=== PATIENT | female | born 1995 | race Caucasian/White ===

== ENCOUNTER 2021-04-02 09:20 | Emergency (ER) | payer OTHER, SELFPAY ==
[2021-04-02 09:24] VITALS: BP 158/93; PULSE 81; RESP 20; TEMP 36.9; O2SAT 99
--- NOTE | 2021-04-02 09:43 | PC.NURSE ---
Attempted to call pt to a room, pt is outside smoking.
[2021-04-02] MEDS: SODIUM CHLORIDE 0.9% IV 1,000 ML 999 ML IV CONT (10:51)
[2021-04-02] MEDS: LIDOCAINE HCL 2% VISC SOLN 15 ML UDC 20 ML PO (10:51)
[2021-04-02] MEDS: PANTOPRAZOLE SODIUM IV 40 MG VIAL IV PUSH (10:51)
[2021-04-02] MEDS: MAG HYDROX/AL HYDROX/SIMETH 30 ML UDC PO (10:51)
[2021-04-02 10:58] LABS: Basophils Percent Auto 0.3 % (0.2-1.2); Eosinophils Absolute Auto 0.1 K/mm3 (0-0.3); Eosinophils Percent Auto 0.9 % (0-4.4); Hemoglobin 13.7 g/dL (12.0-15.0); Immature Granulocyte Absolute 0.03 K/mm3 (0.00-0.031); Immature Granulocyte Percent A 0.3 % (0-0.5); Lymphocytes Absolute Auto 2.22 K/mm3 (0.9-3.2); Lymphocytes Percent Auto 21.8 % (18.3-44.2); Mean Corpuscular HGB Conc 32.6 g/dl (32-36); Mean Corpuscular Volume 82.8 fl (80-100); Mean Platelet Volume 9.8 fl (7.4-10.4); Monocytes Absolute Auto 0.5 K/mm3 (0.1-0.6); Monocytes Percent Auto 5.3 % (2.6-8.5); Neutrophils Absolute Auto 7.3 K/mm3 (1.3-6.7); Neutrophils Percent Auto 71.4 % (45.5-73.1); Platelet Count Result 309 k/mm3 (150-375); Red Blood Count 5.07 M/mm3 (4.2-5.4); Red Cell Distribution Width 13.4 % (11.5-14.5); White Blood Count 10.2 K/mm3 (4.5-10.0)
[2021-04-02 11:02] LABS: Add Urine Microscopic? YES; Appearance Urine Cloudy (Clear); Bacteria Urine Trace /hpf; Bilirubin Urine Negative (Negative); Blood Urine Negative (Negative); Color Urine Yellow (Yellow); Glucose Urine UA Negative (Negative); Ketones Urine Negative (Negative); Leukocyte Esterase Ur Trace LEU/UL (Negative); Mucus Urine Rare /lpf; Nitrate Urine Negative (Negative); Protein Urine Negative (Negative); RBC Urine 0-2 /hpf (0-2); Specific Grav Ur 1.023 (1.001-1.035); Squamous Epithelial Cell Urine Many /hpf (Few); Urobilinogen Urine Negative mg/dL (<2.0); WBC Urine 0-3 /hpf
--- NOTE | 2021-04-02 11:06 | ED.GENADULT ---
HPI - General Adult General Chief complaint: Back Pain/Injury Stated complaint: BACK PAIN Time Seen by Provider: 04/02/21 10:22 Source: patient, family and RN notes reviewed Mode of arrival: ambulatory Limitations: no limitations History of Present Illness HPI narrative: Patient is a 25-year-old female who presents to emergency department for evaluation of epigastric pain that radiates to the posterior back patient has been having these symptoms off and on. Patient has not taken anything other than [id number] antacid with no improvement woke up this morning with intensifying pain. Patient on arrival appears uncomfortable but not in distress. Patient denies any fever chills nausea vomiting. Patient denies sick contacts or URI symptoms. Patient has not been seen for this complaint Related Data Allergies Allergy/AdvReac Type Severity Reaction Status Date / Time No Known Allergies Allergy Unknown Verified 04/02/21 09:29 Review of Systems Review of Systems: All systems reviewed & are unremarkable except as noted in HPI and below PMFSH Past Medical History Medical History (Updated 04/02/21 @ 12:11 by Price Argueta PA-C) Anxiety Obesity Family History Family History (Updated 06/08/16 @ 23:21 by DOCTOR UNKNOWN) Father Asthma Patient's father is in good health Grandparent Asthma Mother Patient's mother is in good health Other Family history of arthritis Social History Social History Second hand tobacco smoke exposure: Yes Alcohol intake: current Gender identity (if verbalized by the patient): Female Exam Narrative: Exam Narrative: GENERAL: Well-appearing, obese, uncomfortable and in no acute distress. HEAD: Normocephalic, atraumatic. EYES: PERRLA and EOMI. ENT: Nares clear, no rhinorrhea or epistaxis. Mucous membranes moist. CHEST: Clear to auscultation. No respiratory distress. No wheezes rales or rhonchi HEART: Regular rate and rhythm. No murmur heard. Normal peripheral pulses. ABDOMEN: Soft, epigastric tenderness to palpation, nondistended EXTREMITIES: Normal range of motion. No edema. SKIN: Warm, dry, no rash. NEURO: No focal deficits. Alert and oriented x3. Cranial nerves II through XII grossly intact PSYCH: Normal mood and affect. Course Course Emergency Course: Patient evaluated in the emergency department ABCs and vital signs intact and stable afebrile nontoxic-appearing Vital Signs Vital signs: Vital Signs Temperature 98.5 F 04/02/21 09:24 Pulse Rate 81 04/02/21 09:24 Respiratory Rate 20 04/02/21 09:24 Blood Pressure 158/93 H 04/02/21 09:24 Pulse Oximetry 99 04/02/21 09:24 Temperature 98.5 F 04/02/21 09:24 Pulse Rate 81 04/02/21 09:24 Respiratory Rate 20 04/02/21 09:24 Blood Pressure 158/93 H 04/02/21 09:24 Pulse Oximetry 99 04/02/21 09:24 Medical Decision Making MDM Narrative Medical decision making narrative: Patient in the room at this time feeling much better with interventions specifically the GI cocktail no high risk changes in the blood work or imaging will be referred to GI and primary care for further evaluation patient agrees with this plan Vital Signs Vital Signs: Vital Signs Temperature 98.5 F 04/02/21 09:24 Pulse Rate 81 04/02/21 09:24 Respiratory Rate 20 04/02/21 09:24 Blood Pressure 158/93 H 04/02/21 09:24 Pulse Oximetry 99 04/02/21 09:24 Temperature 98.5 F 04/02/21 09:24 Pulse Rate 81 04/02/21 09:24 Respiratory Rate 20 04/02/21 09:24 Blood Pressure 158/93 H 04/02/21 09:24 Pulse Oximetry 99 04/02/21 09:24 Lab Data Result diagrams: 04/02/21 10:48 04/02/21 10:48 Labs: Lab Results 04/02/21 04/02/21 04/02/21 Range/Units 10:48 10:48 10:48 WBC 10.2 H (4.5-10.0) K/mm3 RBC 5.07 (4.2-5.4) M/mm3 Hgb 13.7 (12.0-15.0) g/dL Hct 42.0 (37.0-47.0) % MCV 82.8 (80-100)
[2021-04-02 11:10] LABS: Alanine Aminotransferase 21 U/L (4-35); Albumin Level 4.1 g/dL (3.5-5.1); Alkaline Phosphatase 85 U/L (38-126); Anion Gap 6 mmol/L (8-16); Aspartate Amino Transferase 21 U/L (14-36); Bilirubin,Total 0.1 mg/dL (0.2-1.3); Blood Urea Nitrogen 12 mg/dL (7-17); Calcium 9.3 mg/dL (8.4-10.2); Carbon Dioxide 26 mmol/L (22-30); Chloride 105 mmol/L (98-107); Estimated CRCL calculation 177 ml/min; Estimated Glomerular Filt Rate > 60; Glucose 131 mg/dL (65-105); Lipase 32 U/L (23-300); Potassium 4.3 mmol/L (3.4-5.0); Sodium 137 mmol/L (137-145)
[2021-04-02 12:47] VITALS: BP 148/84; PULSE 86; RESP 17; O2SAT 99
== END 2021-04-02 12:48 | disposition home or self-care (01) ==
PROVIDERS: Emergency Medicine Emergency Medical Services; Emergency Provider Emergency Medicine; PCP Physician Assistant
DX: R10.13 Epigastric pain (principal); E66.9 Obesity, unspecified; Z68.43 Body mass index [BMI] 50.0-59.9, adult; Z77.22 Contact with and (suspected) exposure to environmental tobacco smoke (acute) (chronic)
CPT/HCPCS: 36415; 80053; 81001; 81025; 83690; 85025; 96361; 96374; 96375; 99284; A9270; C9113; J0131; J7030

== ENCOUNTER 2021-04-11 07:57 | Inpatient (IN) | payer OTHER, SELFPAY ==
--- NOTE | ~2021-04-11 | XR_ITS ---
EXAMINATION: XR chest 2V DATE: 04/11/2021 08:59 INDICATION: Epigastric abdominal pain. Gastroesophageal reflux disease. TECHNIQUE: Frontal and lateral views of the chest were obtained. COMPARISON: None. FINDINGS: The chest demonstrates clear lungs without pneumonia, pleural effusion, or pneumothorax. Th e heart size is normal. IMPRESSION: 1. No acute cardiopulmonary disease. Reviewed, dictated and finalized at location A.
--- NOTE | ~2021-04-11 | US_ITS ---
EXAMINATION: US abdomen limited DATE: 04/11/2021 08:53 INDICATION: Right upper quadrant abdominal pain. TECHNIQUE: Multiple grayscale and Doppler ultrasound images of the abdomen were obtained. COMPARISON: None FINDINGS: The visualized portions of the head and body of the pancreas are normal. The liver is loyda l without focal lesion. There is normal flow in main portal vein. The gallbladder is distended and co ntains gallstones. Gallbladder wall thickening is noted. There was a positive sonographic Garcia sign . The common duct is normal and measures 4 mm. IMPRESSION: 1. Acute cholecystitis. Reviewed, dictated and finalized at location A. IMPRESSION: 1. Acute cholecystitis.
[2021-04-11 08:10] VITALS: BP 133/67; PULSE 70; RESP 16; TEMP 36.3; O2SAT 98
--- NOTE | 2021-04-11 08:16 | ED.ABDPAIN ---
HPI - Abdominal Pain General Chief Complaint: Abdominal Pain Stated Complaint: epigastric pain, hx of gerd Time Seen by Provider: 04/11/21 08:16 Source: patient Mode of arrival: ambulatory Limitations: no limitations History of Present Illness HPI narrative: Patient is a 25-year-old female who presents for evaluation of upper abdominal pain with radiation into the chest. Pain is described as burning in nature, sharp and cramping as well in the right upper quadrant. Radiation to the back. Pain has been constant for several hours this morning. It has been intermittent and worsening over the past 72 hours. At times it is worse after meals. Associated nausea without vomiting. No current shortness of breath. No cough. Patient has fever or chills. History of this 7 years ago in which resolved on its own. She does not take any antacid therapy. 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 She reports watery diarrhea without constipation. No lower abdominal pain or urinary symptoms. Pt with visit 04/02 for epigastric pain, discharged home in stable condition with reassuring labs. Related Data Allergies Allergy/AdvReac Type Severity Reaction Status Date / Time No Known Allergies Allergy Unknown Verified 04/02/21 09:29 Review of Systems Review of Systems: Narrative: CONSTITUTIONAL: Denies fever, chills, or sweats. ENT: Denies rhinorrhea, congestion, sore throat, or otalgia. CARDIOVASCULAR: Denies chest pain, palpitations, or edema. RESPIRATORY: Denies cough or dyspnea. GASTROINTESTINAL: Reports upper abdominal pain, nausea, diarrhea GENITOURINARY: Denies dysuria or hematuria. SKIN: Denies rash or itching. MUSCULOSKELETAL: Reports middle back discomfort, denies other joint pain or myalgias NEUROLOGIC: Denies headache, numbness, or weakness. [facility] Past Medical History Medical History Anxiety Obesity Family History Family History Father Asthma Patient's father is in good health Grandparent Asthma Mother Patient's mother is in good health Other Family history of arthritis Social History Social History Second hand tobacco smoke exposure: Yes Alcohol intake: current Gender identity (if verbalized by the patient): Female Exam Narrative: Exam Narrative: GENERAL: Awake, alert, conversant HEAD: Normocephalic, atraumatic. EYES: PERRLA and EOMI. ENT: Nares clear, no rhinorrhea or epistaxis. Mucous membranes moist. NECK: Supple. CHEST: No respiratory distress, breathing even and non labored HEART: Regular rate, sinus rhythm ABDOMEN:Non distended, obese, right upper quadrant tenderness, positive guarding, positive Garcia sign, positive epigastric tenderness, no periumbilical tenderness, no right lower quadrant tenderness EXTREMITIES: Normal range of motion. No edema. SKIN: Warm, dry, no rash. NEURO:No focal deficits. Alert and oriented x3 Course Vital Signs Vital signs: Vital Signs Temperature 36.3 C L 04/11/21 08:10 Pulse Rate 70 04/11/21 08:10 Respiratory Rate 16 04/11/21 08:10 Blood Pressure 133/67 04/11/21 08:10 Pulse Oximetry 98 04/11/21 08:10 Temperature 36.3 C L 04/11/21 08:10 Pulse Rate 70 04/11/21 08:10 Respiratory Rate 16 04/11/21 08:10 Blood Pressure 133/67 04/11/21 08:10 Pulse Oximetry 98 04/11/21 08:10 MDM - Abdominal Pain MDM Narrative Medical decision making narrative: Patient presenting for right upper quadrant abdominal pain. At the time of assessment, ABCs are intact and vital signs are stable. Patient is tearful, she is anxious, she has right upper quadrant pain with guarding on exam that is concerning for acute cholecystitis given the patient's symptoms. Patient was made n.p.o., given IV fluids, antiemetic and pain medication. Laboratory results show mild leukocytosis. No significa
[2021-04-11 08:22] LABS: Basophils Percent Auto 0.3 % (0.2-1.2); Eosinophils Absolute Auto 0.1 K/mm3 (0-0.3); Eosinophils Percent Auto 0.5 % (0-4.4); Hematocrit 43.3 % (37.0-47.0); Immature Granulocyte Absolute 0.03 K/mm3 (0.00-0.031); Immature Granulocyte Percent A 0.3 % (0-0.5); Lymphocytes Absolute Auto 3.25 K/mm3 (0.9-3.2); Lymphocytes Percent Auto 29.6 % (18.3-44.2); Mean Corpuscular HGB Conc 32.3 g/dl (32-36); Mean Corpuscular Hemoglobin 26.6 pg (26-34); Mean Corpuscular Volume 82.2 fl (80-100); Monocytes Absolute Auto 0.7 K/mm3 (0.1-0.6); Monocytes Percent Auto 6.6 % (2.6-8.5); Neutrophils Absolute Auto 6.9 K/mm3 (1.3-6.7); Neutrophils Percent Auto 62.7 % (45.5-73.1); Platelet Count Result 368 k/mm3 (150-375); Red Blood Count 5.27 M/mm3 (4.2-5.4); Red Cell Distribution Width 13.2 % (11.5-14.5)
[2021-04-11 08:29] LABS: Add Urine Microscopic? YES; Appearance Urine Cloudy (Clear); Bacteria Urine Trace /hpf; Bilirubin Urine Negative (Negative); Blood Urine Negative (Negative); Color Urine Yellow (Yellow); Glucose Urine UA Negative (Negative); Ketones Urine Negative (Negative); Leukocyte Esterase Ur Trace LEU/UL (Negative); Mucus Urine Rare /lpf; Nitrate Urine Negative (Negative); Protein Urine 1+ mg/dL (Negative); Specific Grav Ur 1.026 (1.001-1.035); Squamous Epithelial Cell Urine Many /hpf (Few); Urobilinogen Urine Negative mg/dL (<2.0)
[2021-04-11 08:31] LABS: Alanine Aminotransferase 19 U/L (4-35); Albumin Level 4.4 g/dL (3.5-5.1); Alkaline Phosphatase 84 U/L (38-126); Anion Gap 10 mmol/L (8-16); Aspartate Amino Transferase 21 U/L (14-36); Bilirubin,Total 0.4 mg/dL (0.2-1.3); Blood Urea Nitrogen 11 mg/dL (7-17); Calcium 9.6 mg/dL (8.4-10.2); Carbon Dioxide 24 mmol/L (22-30); Chloride 104 mmol/L (98-107); Estimated CRCL calculation 158 ml/min; Estimated Glomerular Filt Rate > 60; Glucose 118 mg/dL (65-105); Lipase 47 U/L (23-300); Potassium 4.2 mmol/L (3.4-5.0); Sodium 138 mmol/L (137-145)
--- NOTE | 2021-04-11 08:45 | ECG_ITS ---
Measurements Intervals [place] Rate: 49 P: 61 TN: 164 QRS: 92 QRSD: 95 T: 69 QT: 425 QTc: 385 Interpretive Statements SINUS BRADYCARDIA RIGHT AXIS DEVIATION BASELINE WANDER- V6 ABNORMAL ECG Electronically Signed On 04-11-2021 13:20:59 CDT by Tony Camacho D.O.
[2021-04-11] MEDS: ONDANSETRON INJ 4 MG/2 ML VIAL IV PUSH ×2 (09:08→13:11)
[2021-04-11] MEDS: MORPHINE SULFATE (*CRX) 4 MG/ML INJ IV PUSH ×3 (09:09→18:17)
[2021-04-11] MEDS: FAMOTIDINE 20 MG/2 ML VIAL IV PUSH (09:09)
[2021-04-11 09:10] LABS: Troponin I < 0.012 ng/mL (0.000-0.034)
[2021-04-11 10:05] VITALS: BP 138/90; PULSE 60; RESP 16; O2SAT 97
--- NOTE | 2021-04-11 10:15 | PC.NURSE ---
This patient, Wilda Martel, was admitted to [facility] Surg Room 300-01. Patient/family oriented to hospital policies and general routines including ID bracelet, bed and alarms, visiting hours, pain management, procedures, bathroom and other care routines, personal items, smoking policy, room service/diet, and visiting hours. Report received from [facility] Information on how to activate the Rapid Response Team has been discussed. Patient/Family are encouraged to report perceived risks to care and to ask questions if they do not understand what they are told or what they should do.
[2021-04-11 10:18] VITALS: BMI 56.1
[2021-04-11 10:23] VITALS: BP 140/74; PULSE 60; RESP 18; TEMP 36.2; O2SAT 99; BMI 56.1
[2021-04-11] MEDS: SODIUM CHLORIDE 0.9% IV 1,000 ML 125 ML IV CONT ×2 (10:32→18:15)
--- NOTE | 2021-04-11 11:39 | PM.IMHP ---
H&P: HPI History of Present Illness Date/Time: 04/11/21 11:39 Chief Complaint: Epigastric abdominal pain Narrative: This is a 25-year-old morbidly obese female who presented to the ER for evaluation of epigastric abdominal pain. She reports this has been a constant ongoing pain for the past 3 weeks. She initially went to the ER on 04/02/21 with the same complaints and was treated for reflux and sent home with Pepcid and Levsin, which did not improve her symptoms. No imaging was done on that ER visit. Reports frequent nausea over the past 3 weeks and she would force herself to vomit at times, but this was only on a few occasions. No fever or chills. She reports her abdominal pain seemed to be aggravated by eating any food. Her pain is described as epigastric abdominal pain that radiates across the entire upper abdomen, to the substernal chest, and to the mid back. This is a sharp stabbing pain. She reports that she attempted to eat 4 chicken nuggets yesterday afternoon and her pain became more severe over the next few hours. Due to the unrelenting pain, she presented back to the ER for further evaluation. Ultrasound of the right upper quadrant showed acute cholecystitis with cholelithiasis. Labs showed a white blood cell count of 11,000, normal troponin, normal lipase, and normal LFTs. Urinalysis showed trace leukocytes and 10-15 WBC, and many squamous epithelial cells. Urine culture pending. Our service was contacted by the ED provider and she was admitted to our service for surgical evaluation of acute calculous cholecystitis. She is now seen on the medical floor. She reports her abdominal pain has improve and is now a 7/10 on a pain scale. Reports nausea. Denies hematuria, dysuria, frequency, urgency, or vaginal discharge. No other complaints at this time. No history of abdominal surgeries. Patient does also report a small, soft lump on the right side of her face. This has been there for 6 years and her PCP told her it was a cyst. It fluctuates in size at times, but has never become red or painful. Denies any previous imaging of this mass or other testing. She is asking if this could potentially be removed during surgery. This is not painful or bothering her at this time. Review of Systems Review of Systems: All systems reviewed & are unremarkable except as noted in HPI and below Constitutional: Constitutional: Reports as per HPI, Denies chills, Denies fatigue and Denies fever(s) Eyes: Eyes: Reports no additional eye complaints and Denies change in vision ENT: Reports system reviewed and no additional complaints, except as documented, Reports Normal hearing present and Denies dizziness Cardiovascular: Cardiovascular: Reports no additional cardiovascular complaints, Reports chest pain (substernal chest pain radiating from epigastric area), Denies irregular heart rhythm and Denies leg edema Respiratory: Respiratory: Reports no additional respiratory complaints, Denies cough and Denies dyspnea Gastrointestinal: Gastrointestinal: Reports as per HPI, Reports no additional gastrointestinal complaints, Reports abdominal pain (epigastric abd pain, radiating across upper abd and to chest), Denies bloating, Denies coffee ground emesis, Reports loose stools (intermittently over past few weeks), Reports nausea and Reports vomiting Genitourinary: Genitourinary: Denies hematuria, Denies nocturia, Denies genital pruritis, Denies genital lesions, Denies dysuria, Denies pelvic pain, Denies flank pain, Denies urinary incontinence, Denies vaginal discharge and Denies vaginal odor Comments: Reports history of HPV. Musculoskeletal: Musculoskeletal: Denies abnormal gait, Denies deformity, Denies joint swelling, Denies numbness and Denies tingling Integumentary/Breasts: Skin/Breast: Denies wounds and Denies jaundice Neurologic: Reports system reviewed and no additional complaints, except as documented, Reports Normal hearing present, Denies abnormal gait, Denies dizziness
[2021-04-11 13:55] VITALS: BP 143/77; PULSE 75; RESP 16; TEMP 36.7; O2SAT 98
[2021-04-11] MEDS: BISACODYL 10 MG SUPPOSITORY RECTAL (18:49)
[2021-04-11] MEDS: MORPHINE SULFATE (*CRX) 2 MG/ML INJ IV PUSH (21:36)
[2021-04-11 22:00] VITALS: BP 143/87; PULSE 64; RESP 20; TEMP 36.4; O2SAT 100
[2021-04-12] VITALS (11 sets, daily range): BP systolic 115–157; BP diastolic 58–99; PULSE 64–80; RESP 12–22; TEMP 36.1–37.3; O2SAT 92–100
[2021-04-12] MEDS: MORPHINE SULFATE (*CRX) 2 MG/ML INJ IV PUSH ×3 (02:31→22:17)
[2021-04-12] MEDS: SODIUM CHLORIDE 0.9% IV 1,000 ML 125 ML IV CONT (02:31)
[2021-04-12 06:06] LABS: Basophils Percent Auto 0.1 % (0.2-1.2); Eosinophils Percent Auto 0.3 % (0-4.4); Hematocrit 38.4 % (37.0-47.0); Hemoglobin 12.6 g/dL (12.0-15.0); Immature Granulocyte Absolute 0.04 K/mm3 (0.00-0.031); Immature Granulocyte Percent A 0.4 % (0-0.5); Lymphocytes Absolute Auto 2.73 K/mm3 (0.9-3.2); Lymphocytes Percent Auto 26.5 % (18.3-44.2); Mean Corpuscular HGB Conc 32.8 g/dl (32-36); Mean Corpuscular Hemoglobin 26.8 pg (26-34); Mean Corpuscular Volume 81.7 fl (80-100); Mean Platelet Volume 10.1 fl (7.4-10.4); Monocytes Absolute Auto 0.8 K/mm3 (0.1-0.6); Monocytes Percent Auto 8.1 % (2.6-8.5); Neutrophils Absolute Auto 6.7 K/mm3 (1.3-6.7); Neutrophils Percent Auto 64.6 % (45.5-73.1); Platelet Count Result 304 k/mm3 (150-375); Red Cell Distribution Width 12.9 % (11.5-14.5); White Blood Count 10.3 K/mm3 (4.5-10.0)
[2021-04-12 06:23] LABS: Alanine Aminotransferase 72 U/L (4-35); Albumin Level 3.9 g/dL (3.5-5.1); Alkaline Phosphatase 107 U/L (38-126); Anion Gap 9 mmol/L (8-16); Aspartate Amino Transferase 56 U/L (14-36); Bilirubin,Total 0.6 mg/dL (0.2-1.3); Blood Urea Nitrogen 6 mg/dL (7-17); Carbon Dioxide 25 mmol/L (22-30); Chloride 104 mmol/L (98-107); Estimated CRCL calculation 182 ml/min; Estimated Glomerular Filt Rate > 60; Glucose 109 mg/dL (65-105); Lipase 62 U/L (23-300); Potassium 3.9 mmol/L (3.4-5.0); Sodium 138 mmol/L (137-145)
[2021-04-12] MEDS: CHLORHEXIDINE GLUCONATE 4% SOL 120 ML BTL 1 APPLIC TOPICAL (06:33)
[2021-04-12] MEDS: ONDANSETRON INJ 4 MG/2 ML VIAL IV PUSH ×3 (06:37→20:29)
[2021-04-12] MEDS: MORPHINE SULFATE (*CRX) 4 MG/ML INJ IV PUSH ×2 (09:40→18:58)
--- NOTE | 2021-04-12 09:40 | WPDHPUPDATE1 ---
History and Physical Update Update Date/Time: 04/12/21 09:40 History and Physical has been reviewed, including an updated exam of the patient. There are NO changes in the patient's condition. Risks, benefits, and alternatives have been discussed and questions answered. Patient agrees to proceed with procedure.
--- NOTE | 2021-04-12 12:00 | PC.NURSE ---
To OR per bed.
[2021-04-12] MEDS: LACTATED RINGERS 1,000 ML 30 ML IV CONT ×2 (12:30→17:49)
[2021-04-12] MEDS: ACETAMINOPHEN 500 MG TABLET 1000 MG PO (12:49)
--- NOTE | 2021-04-12 12:49 | WPDANESEPPF ---
Anes - Initial Pre Proc Eval Procedure: Operation Date: 04/12/21 14:00 Proposed Procedures p Laparoscopic Cholecystectomy, Possible Intraoperative Cholangiograms,Possible Open - Arvind Bean MD Date/Time: 04/12/21 12:49 Surgeon: Arvind Bean MD Pre Op Diagnosis: ACUTE CHOLECYSTITIS Patient Data Age: 25 Gender: F Height: 5 ft 5 in Weight: 153 kg Last Vital Signs Temp 36.6 C 04/12/21 05:40 Pulse 67 04/12/21 05:40 Resp 20 04/12/21 05:40 BP 136/58 L 04/12/21 05:40 Pulse Ox 98 04/12/21 05:40 Allergies Allergy/AdvReac Type Severity Reaction Status Date / Time No Known Allergies Allergy Unknown Verified 04/11/21 10:28 Home Medications Medication Instructions Recorded Confirmed Type famotidine [Pepcid] 20 mg PO BID #14 tablet 04/02/21 04/11/21 Rx hyoscyamine sulfate [Levsin] 0.125 mg PO QID #7 tablet 04/02/21 04/11/21 Rx Laboratory Tests 04/12/21 04/12/21 04/12/21 05:20 05:20 05:20 WBC 10.3 K/mm3 H K/mm3 (4.5-10.0) RBC 4.70 M/mm3 M/mm3 (4.2-5.4) Hgb 12.6 g/dL g/dL (12.0-15.0) Hct 38.4 % % (37.0-47.0) MCV 81.7 fl fl (80-100) MCH 26.8 pg pg (26-34) MCHC 32.8 g/dl g/dl (32-36) RDW 12.9 % % (11.5-14.5) Plt Count 304 k/mm3 k/mm3 (150-375) MPV 10.1 fl fl (7.4-10.4) Immature Gran % (Auto) 0.4 % % (0-0.5) Neut % (Auto) 64.6 % % (45.5-73.1) Lymph % (Auto) 26.5 % % (18.3-44.2) [place] % (Auto) 8.1 % % (2.6-8.5) Eos % (Auto) 0.3 % % (0-4.4) Baso % (Auto) 0.1 % L % (0.2-1.2) Lymph # (Auto) 2.73 K/mm3 K/mm3 (0.9-3.2) [place] # (Auto) 0.8 K/mm3 H K/mm3 (0.1-0.6) Eos # (Auto) 0.0 K/mm3 K/mm3 (0-0.3) Baso # (Auto) 0.0 K/mm3 K/mm3 (0.0-0.1) Abs Immat Gran (auto) 0.04 K/mm3 H K/mm3 (0.00-0.031) Absolute Neuts (auto) 6.7 K/mm3 K/mm3 (1.3-6.7) Absolute Nucleated RBC 0.0 K/mm3 K/mm3 (0.0-0.012) Nucleated RBC % 0.0 % % (0.0-0.2) Sodium 138 mmol/L mmol/L (137-145) Potassium 3.9 mmol/L mmol/L (3.4-5.0) Chloride 104 mmol/L mmol/L (98-107) Carbon Dioxide 25 mmol/L mmol/L (22-30) Anion Gap 9 mmol/L mmol/L (8-16) BUN 6 mg/dL L D mg/dL (7-17) Creatinine 0.60 mg/dL L mg/dL (0.7-1.0) Estim Creat Clear Calc 182 ml/min ml/min Estimated GFR > 60 (59 - ) Glucose 109 mg/dL H mg/dL (65-105) Calcium 9.0 mg/dL mg/dL (8.4-10.2) Total Bilirubin 0.6 mg/dL mg/dL (0.2-1.3) AST 56 U/L H U/L (14-36) ALT 72 U/L H U/L (4-35) Alkaline Phosphatase 107 U/L U/L (38-126) Total Protein 7.0 g/dL g/dL (6.3-8.2) Albumin 3.9 g/dL g/dL (3.5-5.1) Lipase 62 U/L U/L (23-300) Blood Type O Negative Antibody Screen Negative Patient hx anesthesia problems: none Family hx anesthesia problems: none [facility] Past Medical History Medical History (Updated 04/12/21 @ 12:49 by Cole Denis MD) Anxiety Morbid obesity Surgical History Surgical History No significant past surgical history Family History Family History Father Patient's father is in good health Asthma Gallbladder disease Grandparent Asthma Mother Patient's mother is in good health Family history of arthritis Social History Social History Years smoked: 6 Smoking status: Current every day smoker Tobacco type: cigarettes Second hand tobacco smoke exposure: Yes Alcohol intake: never Substance use: current Substance use type: marijuana Other substance usage details: in the ev
[2021-04-12] MEDS: KETOROLAC 15 MG/ML VIAL (*BKC) IV PUSH (12:50)
[2021-04-12] MEDS: ceFAZolin 3 GM/D5W 100 ML 100 ML IVPB (13:48)
--- NOTE | 2021-04-12 15:08 | SUR.OPER ---
Bile Culture received by Juanita in lab @[phone]
[2021-04-12] MEDS: BUPIVACAINE/EPINEPHRINE 0.5% 50 ML VIAL INFILTRATE (15:21)
--- NOTE | 2021-04-12 17:36 | PM.PROC ---
Procedure Note - Detailed Date of procedure: 04/12/21 Pre-op diagnosis: ACUTE CHOLECYSTITIS Acute Cholecystitis with Cholelithiasis Post-op diagnosis: same Procedure performed: Laparoscopic Cholecystectomy Description of procedure: Patient was seen preoperatively in the holding area and risks, benefits and alternatives confirmed. Patient was taken to the operating room and general anesthesia was induced. A time out was then preformed with the surgery team confirming patient and site of surgery. The abdomen was prepped and draped in the usual sterile fashion. Incision was made just below the umbilicus with an [address] 1 0 Vicryl suture at the base the umbilicus and used it to retract the floppy subcutaneous tissue beneath the umbilicus to the 1 side. I placed 2 stay sutures of O- Vicryl on either side of the mid-line fascia beneath the umbilicus and was then with difficulty able to find the peritoneum put a small incision in it dilate it and then able to slide in the Perez cannula through the fascial defect into the peritoneum. First under low flow and then under high flow the abdomen was insufflated with carbon dioxide never exceeding a pressure of 15. Two 5 mm trocars were then introduced under direct vision. The following trocars were introduced under direct vision: a long 12 mm in the epigastrium and two 5 mm trocars along the right costal margin laterally in the subcostal area. There was significant omental adhesions to the underside of the gallbladder. These were taken down with blunt and sharp dissection using some Bovie cautery for hemostasis. We were able to dissect this completely away from the neck of the gallbladder. However this was very difficult and took more than an hour to carefully work through the indurated fat that was around a large stone just above the neck of the gallbladder. Eventually were we able to work down to the neck of the gallbladder and identify the cystic duct. Using the 12 mm port I was then able to surround both cystic duct and cystic artery carefully using the blunt right angle instrument that fits through a port greater than 10 mm in size. This helped me be safe during this difficult dissection. I then carefully used the L-shaped cautery and the [place] dissector to dissect out the triangle of [place]. I then was able to dissect out both the cystic duct and cystic artery and identify a window of safety. The gall bladder was grasped and the cystic duct and artery were dissected free and clipped with an 10 mm endo-clip waiter/waitress. The cystic duct and artery were clipped with use of 2 clips on the patient's side 1 on the gallbladder side utilizing a 10 mm endoclip-waiter/waitress. The cystic duct was then transected. The cystic artery was also transected at this point. The cystic duct diameter seemed to be about 12 mm and my 10 mm clip did quite closed off. Therefore started leaking a little bit of bile after we cut the duct. Therefore I decided to place an endoloop on this. Interloop was passed through the middle subcostal port the end of the cystic duct was grasped with a [place] through the epigastric port and after 2 tries were able to cinch down the endoloop around the stump of the cystic cystic duct thereby closing off any bile leak from the cystic duct. There were also two 10 mm clips on the cystic duct stump. The gall bladder was removed using electrocautery and then removed from the abdomen using an endobag. In order to get the large stone out of the abdomen within the gallbladder I did make the fascial defect slightly larger with Licea scissors. The trocars were removed visualizing hemostasis and the remaining gas evacuated. Because there had been some bile leakage at the cystic duct stump I decided to leave a 15 round MEAGHAN drain. This was placed through the most lateral port site passing it through the port grabbing it with a grasper and positioning it so that the distal end of it sat right in the area o
[2021-04-12] MEDS: fentaNYL CITRATE INJ (*CRX) 100 MCG/2 ML VIAL 25 MCG IV PUSH (18:03)
[2021-04-12] MEDS: LACTATED RINGERS 1,000 ML 100 ML IV CONT (19:09)
[2021-04-13 03:46] VITALS: BP 121/72; PULSE 59; RESP 20; TEMP 36.7; O2SAT 99
[2021-04-13] MEDS: MORPHINE SULFATE (*CRX) 2 MG/ML INJ IV PUSH (04:27)
[2021-04-13 06:07] LABS: Hematocrit 36.8 % (37.0-47.0); Hemoglobin 12.1 g/dL (12.0-15.0); Mean Corpuscular HGB Conc 32.9 g/dl (32-36); Mean Corpuscular Hemoglobin 26.7 pg (26-34); Mean Corpuscular Volume 81.1 fl (80-100); Mean Platelet Volume 10.5 fl (7.4-10.4); Platelet Count Result 308 k/mm3 (150-375); Red Blood Count 4.54 M/mm3 (4.2-5.4); Red Cell Distribution Width 12.8 % (11.5-14.5); White Blood Count 12.1 K/mm3 (4.5-10.0)
[2021-04-13 06:09] LABS: Alanine Aminotransferase 75 U/L (4-35); Albumin Level 3.6 g/dL (3.5-5.1); Alkaline Phosphatase 102 U/L (38-126); Anion Gap 10 mmol/L (8-16); Aspartate Amino Transferase 57 U/L (14-36); Bilirubin,Total 0.3 mg/dL (0.2-1.3); Blood Urea Nitrogen 7 mg/dL (7-17); Calcium 9.1 mg/dL (8.4-10.2); Carbon Dioxide 23 mmol/L (22-30); Chloride 105 mmol/L (98-107); Estimated CRCL calculation 182 ml/min; Estimated Glomerular Filt Rate > 60; Glucose 101 mg/dL (65-105); Lipase 29 U/L (23-300); Magnesium 1.9 mg/dL (1.6-2.3); Sodium 138 mmol/L (137-145)
[2021-04-13] MEDS: polyethylene glycoL 3350 17 GM POWD.PACK PO (07:58)
[2021-04-13] MEDS: HYDROcodone/acetaminophen (*CRX) 7.5-325 MG TABLET 1 TAB PO ×3 (07:58→17:13)
--- NOTE | 2021-04-13 07:58 | WPDANESPN ---
Anes - Prog Note Post-Op Date/Time: 04/13/21 07:58 Cardiovascular status: normal Respiratory status: normal Airway patency: baseline Mental status: baseline Post-Op hydration status: normal Vital Signs: Last Vital Signs Temp 36.7 C 04/13/21 03:46 Pulse 59 L 04/13/21 03:46 Resp 20 04/13/21 03:46 BP 121/72 04/13/21 03:46 Pulse Ox 99 04/13/21 03:46 Pain Score (VAS): 210 I/O: Intake & Output 04/12/21 04/12/21 04/13/21 15:59 23:59 07:59 Intake Total 1100 1450 550 Output Total 0 615 Balance 1100 1450 -65 Laboratory Tests 04/13/21 05:04 04/13/21 05:04 04/12/21 04/13/21 04/13/21 05:20 05:04 05:04 WBC 12.1 H RBC 4.54 Hgb 12.1 Hct 36.8 L MCV 81.1 MCH 26.7 MCHC 32.9 RDW 12.8 Plt Count 308 MPV 10.5 H Sodium 138 Potassium 4.0 Chloride 105 Carbon Dioxide 23 Anion Gap 10 BUN 7 Creatinine 0.60 L Estim Creat Clear Calc 182 Estimated GFR > 60 Glucose 101 Calcium 9.1 Magnesium 1.9 Total Bilirubin 0.3 AST 57 H ALT 75 H Alkaline Phosphatase 102 Total Protein 7.0 Albumin 3.6 Lipase 29 Blood Type O Negative Antibody Screen Negative Microbiology 04/11/21 08:13 Urine Clean Catch Urine Culture - Final Post-procedural complaints: none Patient Feedback: Patient satisfied with anesthetic care.
[2021-04-13] MEDS: ENOXAPARIN 40 MG/0.4 ML SYRINGE SUB-Q (07:59)
[2021-04-13 08:30] VITALS: BP 116/67; PULSE 67; RESP 16; TEMP 36.3; O2SAT 98
[2021-04-13 11:52] VITALS: BP 121/75; PULSE 69; RESP 18; TEMP 36.3; O2SAT 98
[2021-04-13 15:33] VITALS: BP 130/70; PULSE 67; RESP 18; TEMP 36.3; O2SAT 94
--- NOTE | 2021-04-13 15:58 | PM.DS ---
DS: Admitting Diagnosis Admitting Diagnosis Admitting Diagnosis: Acute cholecystitis Morbid Obesity Mild tobacco abuse Marijuana smoker Facial mass DS: Discharge Diagnosis Discharge Diagnosis (1) Acute cholecystitis: Code(s): K81.0 - Acute cholecystitis Status: Acute Assessment and Plan: 04/12/21 Laparoscopic cholecystectomy (2) Morbid obesity with BMI of 50.0-59.9, adult: Code(s): E66.01 - Morbid (severe) obesity due to excess calories; Z68.43 - Body mass index [BMI] 50.0-59.9, adult Status: Acute Assessment and Plan: Follow-up with PCP regarding further discussion on weight loss. (3) Tobacco use disorder, mild, abuse: Code(s): F17.200 - Nicotine dependence, unspecified, uncomplicated Status: Acute Assessment and Plan: Strongly encouraged cessation. (4) Marijuana smoker: Code(s): F12.90 - Cannabis use, unspecified, uncomplicated Status: Acute Assessment and Plan: Strongly encouraged cessation. (5) Swelling, mass, or lump on face: Code(s): R22.0 - Localized swelling, mass and lump, head Status: Acute Assessment and Plan: Plan was to initially do an excision of the right facial mass during her surgery, but due to the difficulty of surgery and inflammation of the gallbladder, Dr. Bean decided to defer this to a later date. I discussed with the patient today that she can plan this as an outpatient procedure at a later date once healed from this surgery. DS: Summary Hospital Course Reason for hospitalization: This is a 25-year-old morbidly obese female who presented to the ER for evaluation of epigastric abdominal pain that was ongoing for 3 weeks. She had visited the ER on two occasions, the second being this hospitalization. Ultrasound of the right upper quadrant showed acute cholecystitis with cholelithiasis. Labs showed a white blood cell count of 11,000, normal troponin, normal lipase, and normal LFTs. Our service was contacted by the ED provider and she was admitted to our service for surgical evaluation of acute calculous cholecystitis. Hospital Course: She was treated with broad-spectrum IV antibiotics and evaluated for surgery. It appeared that clinically her presentation correlated with acute cholecystitis. Decision was made to take her to the OR. She underwent a laparoscopic cholecystectomy on 04/12/[address] Bean. This was a long procedure that was difficult due to a significant amount of inflammation and she had a large cystic duct that was difficult to clip across. Due to this, a MEAGHAN drain was left in post-operatively. This has been monitored and has only put out minimal serosanguineous drainage. No bilious appearing drainage noted. She was kept overnight for observation. Labs this morning were unremarkable with expected mild leukocytosis, most likely post-operative. She has been advanced to a low fat diet and is tolerating this well. No nausea or vomiting. She is afebrile. IV antibiotics were stopped post-operatively. The patient is tolerating activity and voiding without issues. Pain is well-controlled. Pathology pending. Patient stable for discharge today. Time spent discussing smoking cessation with patient: 3 to 10 minutes Status at Discharge Functional status at discharge: independent ambulation Overall status at discharge: patient is progressing back to baseline Time Spent with Patient Time attestation: Total time spent providing and/or coordinating discharge services: Time spent: Greater than 30 minutes Exam Const: General: comfortable, no acute distress, alert and awake Orientation/consciousness: patient oriented x3 Resp: Effort & Inspection: normal respiratory effort Auscultation: clear to auscultation bilaterally Cardio: Rate: regular rate Rhythm: regular rhythm GI: Inspection: non-distended, incision (Abdominal incisions clean and dry, glue intact.) and obesity GI Palp: Yes Soft to palpation and Yes Tender
== END 2021-04-13 19:15 | disposition home or self-care (01) | DRG 263 ==
LOC: ANHED 09:06 → ANH3MEDSUR 10:03
PROVIDERS: Admitting Provider Surgery; Emergency Provider Emergency Medicine; PCP Physician Assistant; Visit Provider Surgery
PROC: 0FT44ZZ Resection of Gallbladder, Percutaneous Endoscopic Approach (ICD-10-PCS; CPT 47562; principal; 2021-04-12 14:00)
DX: K80.00 Calculus of gallbladder with acute cholecystitis without obstruction (principal); E66.01 Morbid (severe) obesity due to excess calories; Z68.43 Body mass index [BMI] 50.0-59.9, adult; F17.210 Nicotine dependence, cigarettes, uncomplicated; R22.0 Localized swelling, mass and lump, head; F12.90 Cannabis use, unspecified, uncomplicated; Z79.899 Other long term (current) drug therapy
CPT/HCPCS: 36415; 71046; 76705; 80053; 81001; 81025; 83690; 83735; 84484; 85025; 85027; 86850; 86900; 86901; 87070; 87075; 87086; 87205; 88304; 93005; 96361; 96365; 96374; 96375; 96376; 99285; A9270; C1713; G0378; G0379; J0330; J0690; J1650; J1885; J2250; J2270; J2405; J2543; J2704; J3010; J7030; J7120; Q9966

== ENCOUNTER 2023-01-30 15:22 | Emergency (ER) | payer OTHER, SELFPAY ==
[2023-01-30 15:30] VITALS: BP 129/87; PULSE 77; RESP 18; TEMP 36.7; O2SAT 99
--- NOTE | 2023-01-30 15:32 | ED.URI ---
HPI - URI/Sore Throat General Chief Complaint: Upper Respiratory Infection Stated Complaint: sore throat Time Seen by Provider: 01/30/23 15:32 Source: patient Mode of arrival: ambulatory Limitations: no limitations History of Present Illness HPI Narrative: Ms. Martel is a 27-year-old female patient presenting to clinic today with complaints of a cough and mild sore throat. Her daughter tested positive for strep in the clinic today. She denies any known fever or chills. MD elicited complaint: sore throat and nasal congestion Related Data Home Medications Medication Instructions Recorded Confirmed No Home Medications 05/22/21 01/30/23 Allergies Allergy/AdvReac Type Severity Reaction Status Date / Time No Known Allergies Allergy Unknown Verified 05/22/21 11:11 Review of Systems Review of Systems: Pertinent positives per HPI. Patient denies any fever, chills, rash, headache, visual changes, dizziness, cough, shortness of breath, chest pain, palpitations, nausea, vomiting, diarrhea, constipation, abdominal pain, or any urinary issues. [facility] Past Medical History Medical History Anxiety Morbid obesity Surgical History Surgical History History of excision of mass Excision of a right mandibular skin lesion 04/27/21 Hx laparoscopic cholecystectomy Family History Family History Father Patient's father is in good health Asthma Gallbladder disease Grandparent Asthma Mother Patient's mother is in good health Family history of arthritis Social History Social History Years smoked: 6 Smoking status: Current every day smoker Tobacco type: cigarettes Second hand tobacco smoke exposure: Yes Alcohol intake: never Substance use: current Substance use type: marijuana Other substance usage details: in the evening Living arrangements: with friend(s) Additional living arrangements comments: with boyfriend Occupation/Education: occupation Additional occupation/education comments: trailer mechanic Gender identity (if verbalized by the patient): Female Spiritual care concerns: No Comments At the time of my signature, I reviewed and agree with the nursing past medical, surgical, social, and family history. There is no relevant family history pertinent to the patient complaint. Exam Narrative: General: Well-developed, well nourished, in no apparent distress Head: Normocephalic, atraumatic Eyes: Pupils equally round and reactive to light bilaterally, EOM intact, sclera and conjunctive clear, no discharge, lids normal Ears: TMs intact and clear, ear canals clear, no drainage, grossly hearing normal. Nose: Nares patent, clear nasal discharge, no inflammation, no sinus tenderness. Mouth: Oral pharynx without lesions or masses, good dentition, MMM. Oropharynx mildly red Neck: Supple, trachea midline, no enlargement of anterior or posterior cervical nodes, no thyroid masses or goiter palpable. Cardio: Regular rate and rhythm, s1 and s2 normal, no murmur appreciated. Resp: Clear to auscultation bilaterally, no rhonchi, rales, wheezing or rubs Course Course Emergency Course: Portions of this record may have been created with voice recognition software. Level of Care: Express Care Visit Vital Signs Vital signs: Vital signs reviewed MDM - URI/Sore Throat MDM Narrative Medical decision making narrative: At the time of visit patient is resting comfortably on the exam table. Strep screen was obtained and was negative in the clinic today. I suspect patient has acute cough with strep exposure. Supportive measures were discussed with the patient she voiced understanding discharge instructions and agrees to treatment plan. Differential Diagnosis Dif
== END 2023-01-30 15:45 | disposition home or self-care (01) ==
PROVIDERS: Emergency Provider Nurse Practitioner Family
DX: R05.9 Cough, unspecified (principal); Z20.818 Contact with and (suspected) exposure to other bacterial communicable diseases; F17.210 Nicotine dependence, cigarettes, uncomplicated; F12.90 Cannabis use, unspecified, uncomplicated; E66.01 Morbid (severe) obesity due to excess calories; Z68.44 Body mass index [BMI] 60.0-69.9, adult
CPT/HCPCS: 87081; 87880; 99213; G0463